=== PATIENT | male | born 1995 | race African-American/Black ===

== ENCOUNTER 2021-04-21 20:41 | Emergency (ER) | payer OTHER ==
[~2021-04-21] VITALS: Ht 180.3 cm; Wt 88.6 kg
[2021-04-21] MEDS ORDERED: CYCLOBENZAPRINE HCL 10 MG TABLET PO ONE (21:15)
[2021-04-21] MEDS ORDERED: IBUPROFEN 600 MG TABLET PO ONE (21:15)
[2021-04-21 21:38] VITALS: BP 130/61
== END 2021-04-21 21:38 | disposition home or self-care (01) ==
LOC: EMS 20:43
DX: S20.219A Contusion of unspecified front wall of thorax, initial encounter (principal); X58.XXXA Exposure to other specified factors, initial encounter; Y93.89 Activity, other specified; Y92.89 Other specified places as the place of occurrence of the external cause; Y99.8 Other external cause status
CPT/HCPCS: 71045; 99283